=== PATIENT | female | born 1990 | race Two or more races ===

== ENCOUNTER → 2025-01-05 | Outpatient (REF) | payer OTHER ==
[2025-01-05 16:14] LABS: TOTAL PROTEIN,RANDOM URINE 13.8 MG/DL (0.0-14.0)
[2025-01-05 16:55] LABS: Trichomonas vaginalis (AMP) NOT DETECTED (NEGATIVE)
[2025-01-05 17:19] LABS: GC DNA AMPLIFICATION NEGATIVE (NEGATIVE)
== END ==
LOC: M SFHCWAGY 15:03
PROVIDERS: ATTEND Nurse Practitioner Family
DX: O10.911 Unspecified pre-existing hypertension complicating pregnancy, first trimester (principal)

== ENCOUNTER → 2025-01-25 | Outpatient (CLI) | payer OTHER ==
[2025-01-25 15:47] LABS: PLATELET COUNT, AUTOMATED 305 10^3/uL (150-450)
[2025-01-25 16:18] LABS: LDH LACTATE DEHYDROGENASE 148 U/L (120-246)
[2025-01-25 16:19] LABS: ALT/SGPT 16 U/L (7.0-40); AST/SGOT 12 U/L (<34); CREATININE FOR GFR 0.77 MG/DL (0.55-1.30); GLOMERULAR FILTRATION RATE > 90.0 (>60)
[2025-01-25 16:46] LABS: HIV 1&2 SCREEN NEGATIVE (NEGATIVE)
[2025-01-25 16:52] LABS: HEPATITIS C VIRUS ABY INDEX < 0.02 INDEX (<0.8)
== END ==
LOC: M PLALAB 12:38
PROVIDERS: ATTEND Nurse Practitioner Family
DX: O10.911 Unspecified pre-existing hypertension complicating pregnancy, first trimester (principal)

== ENCOUNTER → 2025-02-08 | Outpatient (CLI) | payer OTHER | LOC: M PLALAB 12:11 | PROVIDERS: ATTEND Nurse Practitioner Family | DX: Z34.80 Encounter for supervision of other normal pregnancy, unspecified trimester (principal) ==

== ENCOUNTER → 2025-02-17 | Outpatient (CLI) | payer OTHER ==
[2025-02-17 18:39] LABS: ESTIMATED AVERAGE GLUCOSE 97.0 MG/DL (60-110)
== END ==
LOC: M PLALAB 13:46
PROVIDERS: ATTEND Obstetrics & Gynecology
DX: O09.299 Supervision of pregnancy with other poor reproductive or obstetric history, unspecified trimester (principal); Z3A.00 Weeks of gestation of pregnancy not specified

== ENCOUNTER → 2025-03-08 | Outpatient (CLI) | payer OTHER | LOC: M WHC 13:13 | PROVIDERS: ATTEND Obstetrics & Gynecology | DX: Z36.89 Encounter for other specified antenatal screening (principal); Z3A.19 19 weeks gestation of pregnancy ==

== ENCOUNTER → 2025-04-12 | Outpatient (CLI) | payer OTHER | LOC: M WHC 11:40 | PROVIDERS: ATTEND Nurse Practitioner Family | DX: O10.012 Pre-existing essential hypertension complicating pregnancy, second trimester (principal); Z3A.25 25 weeks gestation of pregnancy ==

== ENCOUNTER → 2025-05-09 | Outpatient (CLI) | payer OTHER | LOC: M WHC 12:52 | PROVIDERS: ATTEND Advanced Practice Midwife | DX: O10.919 Unspecified pre-existing hypertension complicating pregnancy, unspecified trimester (principal) ==

== ENCOUNTER → 2025-05-13 | Outpatient (CLI) | payer OTHER ==
[2025-05-13 14:02] LABS: PLATELET COUNT, AUTOMATED 286 10^3/uL (150-450)
[2025-05-13 14:09] LABS: GLUCOSE CHALLENGE TEST 1 HOUR 168 MG/DL (LESS THAN 140)
[2025-05-13 14:48] LABS: HIV 1&2 SCREEN NEGATIVE (NEGATIVE)
[2025-05-13 14:55] LABS: HEPATITIS C VIRUS ABY INDEX < 0.02 INDEX (<0.8)
[2025-05-13 15:08] LABS: Trichomonas vaginalis (AMP) NOT DETECTED (NEGATIVE)
[2025-05-13 15:32] LABS: GC DNA AMPLIFICATION NEGATIVE (NEGATIVE)
== END ==
LOC: M PLALAB 10:01
PROVIDERS: ATTEND Advanced Practice Midwife
DX: Z34.82 Encounter for supervision of other normal pregnancy, second trimester (principal)

== ENCOUNTER → 2025-05-25 | Outpatient (CLI) | payer OTHER | LOC: M LAB 08:08 | PROVIDERS: ATTEND Specialist | DX: Z34.83 Encounter for supervision of other normal pregnancy, third trimester (principal) ==

== ENCOUNTER → 2025-06-08 | Outpatient (CLI) | payer OTHER | LOC: M WHC 12:13 | PROVIDERS: ATTEND Advanced Practice Midwife | DX: O10.919 Unspecified pre-existing hypertension complicating pregnancy, unspecified trimester (principal) ==

== ENCOUNTER 2025-06-14 11:24 | Emergency (ER) | payer OTHER ==
[2025-06-14] MEDS ORDERED: NIFE1TAB50 PO (11:49)
[2025-06-14] MEDS ORDERED: MULTTAB20 PO (11:49)
[2025-06-14] MEDS ORDERED: LABE200T86 PO (11:49)
[2025-06-14] MEDS ORDERED: ASPI81TA26 PO (11:49)
== END 2025-06-14 11:29 | disposition admitted as inpatient to this hospital (09) ==
LOC: EDBD 11:24 → M ED 11:24
DX: Z53.21 Procedure and treatment not carried out due to patient leaving prior to being seen by health care provider (principal)

== ENCOUNTER 2025-06-14 11:32 | Outpatient (CLI) | payer OTHER ==
[~2025-06-14] VITALS: Ht 157.5 cm; Wt 90.0 kg
[2025-06-14] MEDS ORDERED: ASPI81TA26 PO (11:49)
[2025-06-14] MEDS ORDERED: LABE200T86 PO (11:49)
[2025-06-14] MEDS ORDERED: MULTTAB20 PO (11:49)
[2025-06-14] MEDS ORDERED: NIFE1TAB50 PO (11:49)
[2025-06-14 11:52] VITALS: BP 140/88
[2025-06-14 12:40] VITALS: BP 140/86
[2025-06-14 12:41] VITALS: BP 140/86
[2025-06-14] MEDS: NIFEdipine 30 MG XL TAB PO SCH (12:41)
[2025-06-14] MEDS: LABETALOL 200 MG TAB PO SCH (12:41)
[2025-06-14 12:54] LABS: PLATELET COUNT, AUTOMATED 295 10^3/uL (150-450)
== END 2025-06-14 14:25 | disposition home or self-care (01) ==
LOC: M LDO 11:32
PROVIDERS: ATTEND Obstetrics & Gynecology
DX: Z04.1 Encounter for examination and observation following transport accident (principal); O26.893 Other specified pregnancy related conditions, third trimester; O10.013 Pre-existing essential hypertension complicating pregnancy, third trimester; O34.211 Maternal care for low transverse scar from previous cesarean delivery; R25.2 Cramp and spasm; V43.52XA Car driver injured in collision with other type car in traffic accident, initial encounter; Y92.9 Unspecified place or not applicable; Y93.9 Activity, unspecified; Y99.9 Unspecified external cause status; Z3A.33 33 weeks gestation of pregnancy
CPT/HCPCS: 36415; 59025; 76815; 76819; 85027; 85460; 86900; 86901; G0463

== ENCOUNTER → 2025-06-28 | Outpatient (REF) | payer OTHER ==
[~2025-06-28] MED LIST: ASPI81TA26 PO; LABE200T86 PO; MULTTAB20 PO; NIFE1TAB50 PO
== END ==
LOC: M SFHCWAGY 13:18
PROVIDERS: ATTEND Advanced Practice Midwife
DX: Z14.8 Genetic carrier of other disease (principal)